=== PATIENT | female | born 1965 | race American Indian/Alaskan Native ===

== ENCOUNTER 2018-11-20 18:56 | Inpatient (IN) | payer MEDICARE, MEDICAID ==
[~2018-11-20] VITALS: Ht 170.2 cm; Wt 85.7 kg
[~2018-11-20 18:56] MED LIST: DIAZIDE; GABA300C PO; HYDR1TAB4 PO; HYDR200T80 PO
[2018-11-20] MEDS ORDERED: SODIUM CHLORIDE 0.9% 1,000 ML IV ONE (20:19)
[2018-11-20] MEDS ORDERED: MORPHINE SULFATE 4 MG/ML CPJ (NOT FOR IM USE) IV STA (20:19)
[2018-11-20] MEDS ORDERED: ONDANSETRON HCL 4MG/2ML INJ IV STA (20:19)
[2018-11-20 20:58] LABS: CLARITY URINE CLEAR (CLEAR); COLOR URINE YELLOW (YELLOW); KETONES URINE NEGATIVE (NEGATIVE); LEUKOCYTE ESTERASE URINE NEGATIVE (NEGATIVE); NITRITE URINE NEGATIVE (NEGATIVE); OCCULT BLOOD URINE NEGATIVE (NEGATIVE); PH URINE 6.5 (4.5-8.0); PROTEIN URINE NEGATIVE (NEGATIVE); SPECIFIC GRAVITY URINE 1.034 (1.005-1.030)
[2018-11-20 21:06] LABS: BASOPHILS % 0.5 % (0.0-2.0); CHLORIDE 113 mEq/L (98-107); EOSINOPHILS % 1.6 % (0.0-5.0); HEMATOCRIT. 35.8 % (36.0-48.0); HEMOGLOBIN. 12.2 g/dL (12.0-16.0); LYMPHOCYTES % 34.7 % (20.0-50.0); MEAN CORPUSCULAR HEMOGLOBIN 32.7 pg (28.0-32.0); MEAN CORPUSCULAR VOLUME 95.9 fL (81.0-99.0); MEAN PLATELET VOLUME 8.6 fl (7.4-10.4); MONOCYTES % 9.7 % (2.0-8.0); NEUTROPHILS % 53.5 % (40.0-76.0); PLATELET 204 x1000/uL (130-400); RED BLOOD CELL COUNT 3.73 mill/uL (4.2-5.4); RED CELL DISTRIBUTION WIDTH 12.6 % (11.6-14.6)
[2018-11-20 21:10] LABS: ETHANOL BLOOD < 10 mg/dL; PARTIAL THROMBOPLASTIN TIME 23.8 sec (23.4-31.0); PROTHROMBIN TIME 10.3 sec (9.6-11.0)
[2018-11-20 21:11] LABS: HCG SCREEN NEGATIVE
[2018-11-20 21:13] LABS: *AMPHETAMINES SCREEN URINE NEGATIVE (NEGATIVE); *BARBITURATES SCREEN URINE NEGATIVE (NEGATIVE); *BENZODIAZEPINES SCREEN URINE PRESUMTIVE POSITIVE (NEGATIVE); *COCAINE SCREEN URINE PRESUMTIVE POSITIVE (NEGATIVE); METHADONE URINE SCREEN NEGATIVE (NEGATIVE)
[2018-11-20 21:14] LABS: CANNABINOID URINE SCREEN NEGATIVE (NEGATIVE); OPIATES URINE SCREEN PRESUMTIVE POSITIVE (NEGATIVE); PHENCYCLIDINE URINE SCREEN NEGATIVE (NEGATIVE)
[2018-11-20] MEDS ORDERED: MORPHINE SULFATE 4 MG/ML CPJ (NOT FOR IM USE) IV ONE (22:30)
[2018-11-21] MEDS ORDERED: ASPIRIN 325MG TABLET PO NR
[2018-11-21] MEDS ORDERED: SODIUM CHLORIDE 0.9% 1,000 ML IV SCH (02:34)
[2018-11-21] MEDS ORDERED: CLONIDINE 0.1MG TABLET PO PRN (02:45)
[2018-11-21] MEDS ORDERED: ONDANSETRON HCL 4MG/2ML INJ IV PRN (02:45)
[2018-11-21] MEDS ORDERED: ACETAMINOPHEN 325MG TABLET PO PRN (02:45)
[2018-11-21] MEDS ORDERED: DIPHENHYDRAMINE 50MG/ML VIAL IV PRN (02:45)
[2018-11-21] MEDS: KETOROLAC 30MG/ML VIAL IV PRN ×3 (03:12→16:29)
[2018-11-21] MEDS ORDERED: TRAMADOL 50MG TABLET PO PRN (04:45)
[2018-11-21] MEDS ORDERED: OMEPRAZOLE 20MG CAPSULE EXTENDED RELEASE PO SCH (07:50)
[2018-11-21] MEDS: GABAPENTIN 400MG CAPSULE PO SCH ×3 (08:05→21:19)
[2018-11-21] MEDS: FUROSEMIDE 40MG/4ML VIAL IVP SCH (09:00)
[2018-11-21] MEDS ORDERED: CARBAMAZEPINE 100MG TABLET CHEW PO SCH (09:00)
[2018-11-21] MEDS: HYDROXYCHLOROQUINE SULFATE 200MG TABLET PO SCH ×2 (09:36→16:27)
[2018-11-21] MEDS: CARBAMAZEPINE 100MG TABLET CHEW PO SCH ×2 (09:36→16:27)
[2018-11-21 12:00] VITALS: BP 108/73
[2018-11-21 12:30] VITALS: BP 108/73
[2018-11-21] MEDS ORDERED: PANT40SU PO (15:36)
[2018-11-21] MEDS ORDERED: CARB200T MT (15:36)
[2018-11-21] MEDS ORDERED: ONDA4TAB5 PO (15:36)
[2018-11-21] MEDS ORDERED: DIAZ10TA4 PO (15:36)
[2018-11-21] MEDS ORDERED: OXYC30TA89 PO (15:36)
[2018-11-21] MEDS ORDERED: MEGE40TA27 MT (15:36)
[2018-11-21] MEDS ORDERED: IBUP-2030 PO (15:41)
[2018-11-21] MEDS ORDERED: MECL-109 PO (15:41)
[2018-11-21] MEDS ORDERED: ZOLP10TA2 PO (15:41)
[2018-11-21] MEDS ORDERED: ALBU6.7H9 INH (15:41)
[2018-11-21 16:00] VITALS: BP 120/86
[2018-11-21] MEDS ORDERED: MAGNESIUM HYDROXIDE 400MG/5ML 30ML UDC PO PRN (16:15)
[2018-11-21] MEDS ORDERED: BISACODYL 10MG SUPP PR NR (16:30)
[2018-11-21 20:00] VITALS: BP 148/107
[2018-11-22] VITALS (7 sets, daily range): BP systolic 105–135; BP diastolic 71–100
[2018-11-22] MEDS: KETOROLAC 30MG/ML VIAL IV PRN ×3 (01:06→15:22)
[2018-11-22 06:28] LABS: BASOPHILS % 0.2 % (0.0-2.0); EOSINOPHILS % 1.8 % (0.0-5.0); HEMATOCRIT. 34.3 % (36.0-48.0); HEMOGLOBIN. 11.5 g/dL (12.0-16.0); LYMPHOCYTES % 14.5 % (20.0-50.0); MEAN CORPUSCULAR HEMOGLOBIN 32.5 pg (28.0-32.0); MEAN CORPUSCULAR VOLUME 96.9 fL (81.0-99.0); MEAN PLATELET VOLUME 8.5 fl (7.4-10.4); MONOCYTES % 6.7 % (2.0-8.0); NEUTROPHILS % 76.8 % (40.0-76.0); PLATELET 172 x1000/uL (130-400); RED BLOOD CELL COUNT 3.54 mill/uL (4.2-5.4); RED CELL DISTRIBUTION WIDTH 12.4 % (11.6-14.6)
[2018-11-22] MEDS: GABAPENTIN 400MG CAPSULE PO SCH ×2 (06:32→14:06)
[2018-11-22] MEDS: CARBAMAZEPINE 100MG TABLET CHEW PO SCH ×2 (06:32→17:45)
[2018-11-22 06:33] LABS: CHLORIDE 115 mEq/L (98-107)
[2018-11-22] MEDS: FUROSEMIDE 40MG/4ML VIAL IVP SCH (08:01)
[2018-11-22] MEDS: HYDROXYCHLOROQUINE SULFATE 200MG TABLET PO SCH ×2 (08:01→17:45)
[2018-11-22] MEDS ORDERED: ENOXAPARIN 40MG/0.4ML SYR SUBCUT SCH (09:00)
[2018-11-22] MEDS ORDERED: MEGESTROL ACETATE 400 MG/10 ML UDC PO SCH (12:15)
[2018-11-22] MEDS ORDERED: GUAIFENESIN-DM 200MG-20MG/10ML UDC PO PRN (12:15)
== END 2018-11-22 18:17 | disposition home or self-care (01) | DRG 378 ==
LOC: ER 21:23 → 5WST 21:50 → ENRESERV 11-21 10:26 → 5WST 11-21 11:35
PROVIDERS: ADMIT Internal Medicine; ATTEND Internal Medicine
DX: K92.2 Gastrointestinal hemorrhage, unspecified (principal); I69.354 Hemiplegia and hemiparesis following cerebral infarction affecting left non-dominant side; G90.8 Other disorders of autonomic nervous system; F14.10 Cocaine abuse, uncomplicated; M32.9 Systemic lupus erythematosus, unspecified; Z88.0 Allergy status to penicillin; Z88.8 Allergy status to other drugs, medicaments and biological substances
CPT/HCPCS: 36415; 71045; 73630; 74176; 80048; 80305; 80320; 81003; 83735; 84100; 84484; 84703; 85651; 86038; 93005; 93970; 97162; 99285; J1200; J1650; J1885; J1940; J2270; J2405; J7030; G0480

== ENCOUNTER 2019-03-11 19:26 | Inpatient (IN) | payer MEDICARE, MEDICAID ==
[~2019-03-11] VITALS: Ht 170.2 cm; Wt 85.3 kg
[~2019-03-11 19:26] MED LIST changes: +ALBU6.7H9 INH; +CARB200T MT; +DIAZ10TA4 PO; -DIAZIDE; -HYDR1TAB4 PO; +IBUP-2030 PO; +MECL-159 PO; +MEGE40TA27 MT; +ONDA4TAB5 PO; +OXYC30TA89 PO; +PANT40SU PO; +ZOLP10TA2 PO
[2019-03-11] MEDS ORDERED: ONDANSETRON HCL 4MG/2ML INJ IV STA (20:10)
[2019-03-11] MEDS ORDERED: MORPHINE SULFATE 4 MG/ML CPJ (NOT FOR IM USE) IV STA (20:10)
[2019-03-11] MEDS ORDERED: SODIUM CHLORIDE 0.9% 1,000 ML IV ONE (20:10)
[2019-03-11] MEDS ORDERED: METOCLOPRAMIDE HCL 10MG/2ML VIAL IV ONE (20:45)
[2019-03-11] MEDS ORDERED: DIPHENHYDRAMINE 50MG/ML VIAL IV ONE (20:45)
[2019-03-11 20:49] LABS: BASOPHILS % 0.9 % (0.0-2.0); EOSINOPHILS % 2.6 % (0.0-5.0); HEMATOCRIT. 38.2 % (36.0-48.0); HEMOGLOBIN. 13.1 g/dL (12.0-16.0); LYMPHOCYTES % 29.5 % (20.0-50.0); MEAN CORPUSCULAR HEMOGLOBIN 32.3 pg (28.0-32.0); MEAN CORPUSCULAR VOLUME 94.1 fL (81.0-99.0); MEAN PLATELET VOLUME 8.4 fl (7.4-10.4); MONOCYTES % 5.6 % (2.0-8.0); NEUTROPHILS % 61.4 % (40.0-76.0); PLATELET 230 x1000/uL (130-400); RED BLOOD CELL COUNT 4.06 mill/uL (4.2-5.4); RED CELL DISTRIBUTION WIDTH 12.4 % (11.6-14.6)
[2019-03-11 20:54] LABS: CHLORIDE 110 mEq/L (98-107)
[2019-03-11 20:56] LABS: PARTIAL THROMBOPLASTIN TIME 23.9 sec (23.4-31.0); PROTHROMBIN TIME 9.9 sec (9.6-11.0)
[2019-03-11 20:58] LABS: ETHANOL BLOOD < 10 mg/dL
[2019-03-11] MEDS ORDERED: ASPIRIN 81MG TABLET PO ONE (21:00)
[2019-03-11 21:01] LABS: LDL CHOLESTEROL 128 mg/dL (5-100)
[2019-03-11] MEDS ORDERED: CLONIDINE 0.1MG TABLET PO PRN (21:45)
[2019-03-11] MEDS ORDERED: TRAMADOL 50MG TABLET PO PRN (21:45)
[2019-03-11] MEDS ORDERED: ONDANSETRON HCL 4MG/2ML INJ IV PRN (21:45)
[2019-03-11] MEDS ORDERED: ACETAMINOPHEN 325MG TABLET PO PRN (21:45)
[2019-03-11] MEDS ORDERED: GUAIFENESIN 200MG/10ML SUGAR FREE UDC PO PRN (21:45)
[2019-03-11] MEDS ORDERED: HYDRALAZINE 20MG/ML VIAL IV PRN (22:00)
[2019-03-11 22:17] LABS: CLARITY URINE CLEAR (CLEAR); COLOR URINE YELLOW (YELLOW); KETONES URINE NEGATIVE (NEGATIVE); LEUKOCYTE ESTERASE URINE NEGATIVE (NEGATIVE); NITRITE URINE NEGATIVE (NEGATIVE); OCCULT BLOOD URINE NEGATIVE (NEGATIVE); PROTEIN URINE NEGATIVE (NEGATIVE); SPECIFIC GRAVITY URINE 1.023 (1.005-1.030); UROBILINOGEN URINE 0.2 E.U./dL (0.2-1.0)
[2019-03-11 22:33] LABS: *AMPHETAMINES SCREEN URINE NEGATIVE (NEGATIVE); *BARBITURATES SCREEN URINE NEGATIVE (NEGATIVE); *BENZODIAZEPINES SCREEN URINE PRESUMTIVE POSITIVE (NEGATIVE); *COCAINE SCREEN URINE NEGATIVE (NEGATIVE); METHADONE URINE SCREEN NEGATIVE (NEGATIVE)
[2019-03-11 22:34] LABS: CANNABINOID URINE SCREEN NEGATIVE (NEGATIVE); OPIATES URINE SCREEN PRESUMTIVE POSITIVE (NEGATIVE); PHENCYCLIDINE URINE SCREEN NEGATIVE (NEGATIVE)
[2019-03-11 23:13] LABS: *AMPHETAMINES SCREEN URINE NEGATIVE (NEGATIVE)
[2019-03-11 23:14] LABS: *BARBITURATES SCREEN URINE NEGATIVE (NEGATIVE); *BENZODIAZEPINES SCREEN URINE PRESUMTIVE POSITIVE (NEGATIVE); *COCAINE SCREEN URINE NEGATIVE (NEGATIVE); CANNABINOID URINE SCREEN NEGATIVE (NEGATIVE); METHADONE URINE SCREEN NEGATIVE (NEGATIVE); OPIATES URINE SCREEN PRESUMTIVE POSITIVE (NEGATIVE); PHENCYCLIDINE URINE SCREEN NEGATIVE (NEGATIVE)
[2019-03-11] MEDS ORDERED: IOHEXOL-350 100 ML BOTTLE ONE (23:14)
[2019-03-11] MEDS ORDERED: BISACODYL 10MG SUPP PR PRN (23:15)
[2019-03-11] MEDS ORDERED: MAGNESIUM/ALUMINUM HYDROXIDE/SIMETHICONE 30ML UDC PO PRN (23:15)
[2019-03-11] MEDS ORDERED: MAGNESIUM HYDROXIDE 400MG/5ML 30ML UDC PO PRN (23:15)
[2019-03-12 03:58] VITALS: BP 154/106
[2019-03-12 04:00] VITALS: BP 152/106
[2019-03-12] MEDS ORDERED: PNEUMOCOCCAL 23-VAL P-SAC VAC 0.5 ML IM ONE (05:00)
[2019-03-12] MEDS: SODIUM CHLORIDE 0.9% INJ 3ML FLUSH IVF SCH ×3 (05:33→22:00)
[2019-03-12] MEDS: GABAPENTIN 400MG CAPSULE PO SCH ×3 (05:44→22:16)
[2019-03-12] MEDS: CARBAMAZEPINE 100MG TABLET CHEW PO SCH ×3 (05:44→18:07)
[2019-03-12] MEDS: OMEPRAZOLE 20MG CAPSULE EXTENDED RELEASE PO SCH ×2 (05:44→20:14)
[2019-03-12] MEDS: SUCRALFATE 1 G/10 ML UDC PO SCH ×4 (05:45→20:15)
[2019-03-12] MEDS: KETOROLAC 30MG/ML VIAL IV PRN ×3 (06:51→20:15)
[2019-03-12 08:00] VITALS: BP 117/64
[2019-03-12] MEDS: POTASSIUM CHLORIDE 20MEQ TABLET SR PO SCH (08:06)
[2019-03-12] MEDS: ASPIRIN 81MG EC TABLET PO SCH (08:06)
[2019-03-12] MEDS: FUROSEMIDE 40MG TABLET PO SCH (08:06)
[2019-03-12] MEDS: ENOXAPARIN 40MG/0.4ML SYR SUBCUT SCH (08:07)
[2019-03-12] MEDS ORDERED: HYDROXYCHLOROQUINE SULFATE 200MG TABLET PO SCH (09:00)
[2019-03-12] MEDS: HYDROCODONE/ACETAMINOPHEN 5/325MG TABLET PO PRN ×2 (10:45→20:15)
[2019-03-12 12:00] VITALS: BP 117/87
[2019-03-12 12:18] LABS: PROTHROMBIN TIME 10.4 sec (9.6-11.0)
[2019-03-12 12:58] LABS: BG BASE EXCESS 0.5 mmol/L (-2.0-2.0); BG CARBOXYHEMOGLOBIN 0.6 % (0.5-1.5); BG DEOXYHEMOGLOBIN 3.2 % (0.0-5.0); BG FRACTION INSPIRED OXYGEN 21; BG HCO3 ACT 26.3 mmol/L (22.0-26.0); BG METHEMOGLOBIN 0.3 % (0.0-1.5); BG OXYGEN SATURATION 96.8 % (92.0-98.5); BG OXYHEMOGLOBIN 95.9 % (94.0-97.0); BG PCO2 46.8 mmHg (35.0-45.0); BG PH 7.367 (7.350-7.450); BG PO2 93.9 mmHg (75.0-100.0); BG SAMPLE SITE RIGHT RADIAL; BG TOTAL HEMOGLOBIN 12.4 g/dL (12.0-18.0); BG VENT MODE ROOM AIR
[2019-03-12] MEDS ORDERED: SUMATRIPTAN SUCCINATE 25MG TABLET PO SCH (14:45)
[2019-03-12] MEDS ORDERED: METHYLPREDNISOLONE SOD SUCC 125 MG/2 ML VIAL IV SCH (14:45)
[2019-03-12 16:00] VITALS: BP 115/74
[2019-03-12] MEDS: BLOOD SUGAR DIAGNOSTIC STRIP TEST SCH ×2 (16:46→21:00)
[2019-03-12 20:00] VITALS: BP 145/101
[2019-03-12] MEDS ORDERED: ATORVASTATIN CALCIUM 20MG TABLET PO SCH (21:00)
[2019-03-12] MEDS: DIPHENHYDRAMINE 50MG/ML VIAL IV PRN (22:41)
[2019-03-13] VITALS: BP 127/85
[2019-03-13] MEDS: HYDROCODONE/ACETAMINOPHEN 5/325MG TABLET PO PRN ×3 (00:58→16:01)
[2019-03-13] MEDS: DIPHENHYDRAMINE 50MG/ML VIAL IV PRN ×2 (03:10→14:45)
[2019-03-13 04:00] VITALS: BP 127/94
[2019-03-13] MEDS: GABAPENTIN 400MG CAPSULE PO SCH ×2 (05:27→13:14)
[2019-03-13] MEDS: KETOROLAC 30MG/ML VIAL IV PRN ×2 (05:28→13:12)
[2019-03-13] MEDS: SODIUM CHLORIDE 0.9% INJ 3ML FLUSH IVF SCH ×2 (05:28→13:12)
[2019-03-13] MEDS: BLOOD SUGAR DIAGNOSTIC STRIP TEST SCH ×2 (05:39→12:08)
[2019-03-13] MEDS: OMEPRAZOLE 20MG CAPSULE EXTENDED RELEASE PO SCH (05:39)
[2019-03-13] MEDS: SUCRALFATE 1 G/10 ML UDC PO SCH ×2 (05:39→12:08)
[2019-03-13 08:00] VITALS: BP 108/82
[2019-03-13] MEDS: ASPIRIN 81MG EC TABLET PO SCH (08:05)
[2019-03-13] MEDS: CARBAMAZEPINE 100MG TABLET CHEW PO SCH (08:05)
[2019-03-13] MEDS: POTASSIUM CHLORIDE 20MEQ TABLET SR PO SCH (08:05)
[2019-03-13] MEDS: FUROSEMIDE 40MG TABLET PO SCH (08:05)
[2019-03-13] MEDS: ENOXAPARIN 40MG/0.4ML SYR SUBCUT SCH (08:06)
[2019-03-13 12:00] VITALS: BP 118/82
[2019-03-13 16:00] VITALS: BP 111/80
[2019-03-13 16:38] VITALS: BP 111/80
[2019-03-13] MEDS ORDERED: FAMOTIDINE 20MG TABLET PO SCH (21:00)
[2019-03-15 09:10] LABS: COMPLEMENT C3 118 mg/dL (82-167)
[2019-03-15 13:10] LABS: ANTI-DNA DOUBLE STRANDED QUANT 1 IU/mL (0-9); ANTI-NUCLEAR ANTIBODIES DIRECT Positive (Negative)
== END 2019-03-13 18:20 | disposition home or self-care (01) | DRG 103 ==
LOC: ER 21:47 → 5WST 21:48 → ENRESERV 03-12 02:55
PROVIDERS: ADMIT Internal Medicine; ATTEND Internal Medicine
DX: G43.109 Migraine with aura, not intractable, without status migrainosus (principal); I69.354 Hemiplegia and hemiparesis following cerebral infarction affecting left non-dominant side; G89.4 Chronic pain syndrome; I10 Essential (primary) hypertension; K21.9 Gastro-esophageal reflux disease without esophagitis; K29.70 Gastritis, unspecified, without bleeding; E66.9 Obesity, unspecified; M32.9 Systemic lupus erythematosus, unspecified; M54.30 Sciatica, unspecified side; Z88.0 Allergy status to penicillin; Z88.8 Allergy status to other drugs, medicaments and biological substances; Z79.899 Other long term (current) drug therapy; Z68.29 Body mass index [BMI] 29.0-29.9, adult
CPT/HCPCS: 36415; 36600; 70496; 70498; 70551; 71045; 74018; 80053; 80305; 80320; 81003; 82375; 82805; 82962; 83721; 84484; 85025; 85384; 85651; 86038; 86160; 86225; 90732; 93005; 93970; 97162; 99291; J1200; J1650; J1885; J2270; J2405; J2765; J2930; J7030; Q9967; G0480

== ENCOUNTER 2020-03-28 02:38 | Emergency (ER) | payer MEDICARE, MEDICAID ==
[~2020-03-28] VITALS: Ht 157.5 cm; Wt 72.0 kg
[~2020-03-28 02:38] MED LIST changes: -MEGE40TA27 MT; +MEGE40TA5 MT; +OXYC-582 PO; -OXYC30TA89 PO
[2020-03-28] MEDS ORDERED: KETOROLAC 30MG/ML VIAL IV STA (03:04)
[2020-03-28] MEDS ORDERED: ONDANSETRON HCL 4MG/2ML INJ IV STA (03:04)
[2020-03-28] MEDS ORDERED: PROCHLORPERAZINE 10MG/2ML VIAL IM NR (05:00)
[2020-03-28 05:09] LABS: HEMATOCRIT. 39.3 % (36.0-48.0); HEMOGLOBIN. 13.1 g/dL (12.0-16.0); MEAN CORPUSCULAR HEMOGLOBIN 31.8 pg (28.0-32.0); MEAN CORPUSCULAR VOLUME 95.4 fL (81.0-99.0); MEAN PLATELET VOLUME 8.9 fl (7.4-10.4); PLATELET 236 x1000/uL (130-400); RED BLOOD CELL COUNT 4.12 mill/uL (4.2-5.4); RED CELL DISTRIBUTION WIDTH 12.9 % (11.6-14.6)
[2020-03-28 05:14] LABS: CHLORIDE 106 mEq/L (98-107)
[2020-03-28 05:24] LABS: ETHANOL BLOOD < 10 mg/dL
[2020-03-28 05:50] LABS: PLATELET ESTIMATE NORMAL
[2020-03-28 06:40] VITALS: BP 153/102
== END 2020-03-28 07:06 | disposition home or self-care (01) ==
LOC: ER 02:38 → CANBEDREQ 09:42
DX: R11.2 Nausea with vomiting, unspecified (principal); R19.7 Diarrhea, unspecified; R50.9 Fever, unspecified; Z20.822 Contact with and (suspected) exposure to COVID-19; R03.0 Elevated blood-pressure reading, without diagnosis of hypertension; M32.9 Systemic lupus erythematosus, unspecified
CPT/HCPCS: 36415; 71045; 80053; 80320; 83605; 83690; 83880; 84145; 84484; 85025; 85379; 93005; 96372; 96374; 96375; 99285; C9803; J0780; J1885; J2405; U0003; G0480

== ENCOUNTER 2024-08-13 01:58 | Emergency (ER) | payer MEDICARE, MEDICAID ==
[~2024-08-13] VITALS: Ht 167.6 cm; Wt 75.0 kg
[~2024-08-13 01:58] MED LIST changes: +ALBU6.7H3 INH; -ALBU6.7H9 INH; -MECL-159 PO; +MECL-299 PO
[2024-08-13 02:05] VITALS: BP 140/88; PULSE 82; RESP 16; TEMP 36.7; O2SAT 98
[2024-08-13] MEDS: IBUPROFEN 400MG TABLET PO ONE (03:52)
[2024-08-13] MEDS ORDERED: BO1 TP (04:49)
== END 2024-08-13 05:00 | disposition home or self-care (01) ==
LOC: ER 01:58
DX: S41.111A Laceration without foreign body of right upper arm, initial encounter (principal); M35.00 Sjogren syndrome, unspecified; Z86.73 Personal history of transient ischemic attack (TIA), and cerebral infarction without residual deficits; Z88.0 Allergy status to penicillin; Z88.5 Allergy status to narcotic agent; Z79.899 Other long term (current) drug therapy; Z59.02 Unsheltered homelessness; Y08.89XA Assault by other specified means, initial encounter; Y93.89 Activity, other specified; Y92.89 Other specified places as the place of occurrence of the external cause; Y99.8 Other external cause status
CPT/HCPCS: 99283